=== PATIENT | female | born 1960 | race Caucasian/White ===

== ENCOUNTER 2018-01-17 01:46 | Emergency (ER) | payer OTHER ==
[~2018-01-17] VITALS: Ht 157.5 cm; Wt 69.0 kg
[~2018-01-17 01:46] MED LIST: ALPR1 PO; Budeprion Xl300 MG PO; DIPH50 PO; FAMO40 PO; LORA1 PO; METPRE4DP PO; OLAN2.5 PO; [UNRECOGNIZED DRUG - REMARK]
[2018-01-17] MEDS ORDERED: Ativan0.5 MG PO (04:13)
== END 2018-01-17 04:22 | disposition home or self-care (01) ==
LOC: ER 01:46
DX: F41.9 Anxiety disorder, unspecified (principal); F43.0 Acute stress reaction; G10 Huntington's disease; Z88.6 Allergy status to analgesic agent; Z88.7 Allergy status to serum and vaccine; Z79.899 Other long term (current) drug therapy; Z87.891 Personal history of nicotine dependence
CPT/HCPCS: 96372; 99282; J2060

== ENCOUNTER 2023-08-19 09:24 | Emergency (ER) | payer BC, OTHER ==
[~2023-08-19] VITALS: Ht 157.5 cm; Wt 65.8 kg
[~2023-08-19 09:24] MED LIST changes: +Ativan0.5 MG PO
[2023-08-19] MEDS ORDERED: QUETIAPINE FUMA5012 PO (10:03)
[2023-08-19] MEDS ORDERED: METPHE20CR PO (10:03)
[2023-08-19] MEDS ORDERED: BUPROPION HCL200 M1 PO (10:04)
[2023-08-19] MEDS ORDERED: ONDA4ODT MM ×2 (10:04→12:13)
[2023-08-19] MEDS ORDERED: ALPRAZOLAM110 (10:05)
[2023-08-19] MEDS ORDERED: Morphine Sulfate 4 MG/1 ML Injection IV ONE (10:15)
[2023-08-19] MEDS ORDERED: Ondansetron HCl 2 MG / ML 2ML Vial IV ONE (10:15)
[2023-08-19 10:24] LABS: BASOPHILS ABSOLUTE AUTO 0.04 K/mm3 (0.00-0.23); BASOPHILS PERCENT AUTO 0 % (0-2); EOSINOPHILS ABSOLUTE AUTO 0.17 K/mm3 (0.00-0.68); EOSINOPHILS PERCENT AUTO 2 % (0-6); Hemoglobin 13.9 g/dL (11.5-16.0); IMMATURE GRAN ABSOLUTE AUTO 0.05 K/mm3 (0.00-0.10); IMMATURE GRAN PERCENT AUTO 1 % (0-1); LYMPHOCYTES ABSOLUTE AUTO 1.27 K/mm3 (0.84-5.20); LYMPHOCYTES PERCENT AUTO 12 % (21-46); MONOCYTES ABSOLUTE AUTO 0.91 K/mm3 (0.16-1.47); MONOCYTES PERCENT AUTO 9 % (4-13); Mean Corpuscular HGB 29.5 pg (26.0-34.0); Mean Corpuscular HGB Conc 33.1 g/dL (31.5-36.5); Mean Corpuscular Volume 89 fL (80-100); NEUTROPHILS ABSOLUTE AUTO 8.31 K/mm3 (1.96-9.15); NEUTROPHILS PERCENT AUTO 77 % (41-73); Platelet Count 230 K/mm3 (150-400); RDW Coefficient Variation 13.7 % (11.7-14.2); RDW Standard Deviation 44.6 fL (35.1-46.3); Red Blood Cell Count 4.71 M/mm3 (3.80-5.20); White Blood Cell Count 10.75 K/mm3 (4.00-11.30)
[2023-08-19 10:30] LABS: Source, Urine Voided
[2023-08-19 10:35] LABS: Appearance, Urine Clear (Clear); Bilirubin, Urine Neg (Neg); Blood, Urine 1+ (Neg); Color, Urine Yellow (P-Yellow); Glucose Qualitative, Urine Neg (Neg); Ketones, Urine Neg (Neg); Leukocyte Esterase, Urine 2+ (Neg); Nitrite, Urine Neg (Neg); Protein, Urine Neg (Neg); Specific Gravity, Urine 1.005 (1.003-1.022); Urobilinogen, Urine NORM (Normal); pH, Urine 6.5 (5.0-8.0)
[2023-08-19 10:39] LABS: Albumin, Blood 3.9 g/dL (3.4-5.0); Bilirubin, Total 0.5 mg/dL (0.1-1.0); Bun/Creatinine Ratio 19.5 (12.0-20.0); Calcium, Blood 9.3 mg/dL (8.5-10.1); Creatinine, Blood 0.77 mg/dL (0.40-1.00); Globulin, Blood 3.9 g/dL (2.2-4.0); Potassium, Blood 4.1 mmol/L (3.5-5.5); Total Protein, Blood 7.8 g/dL (6.4-8.2)
[2023-08-19 10:41] LABS: Bacteria Few /hpf; Squamous Epithelial Cells Few /hpf (Few)
[2023-08-19] MEDS ORDERED: Colace100 MG PO (12:13)
[2023-08-19] MEDS ORDERED: Norco 5-325 Ta1 EACH PO (12:13)
[2023-08-19 12:48] VITALS: BP 150/84
[2023-08-19] MEDS ORDERED: HYDROCODONE-AC1 EA10 PO (12:48)
== END 2023-08-19 12:53 | disposition home or self-care (01) ==
LOC: ER 09:24
PROVIDERS: Emergency Medicine
DX: R10.9 Unspecified abdominal pain (principal); Z88.6 Allergy status to analgesic agent; Z88.7 Allergy status to serum and vaccine; Z79.899 Other long term (current) drug therapy; Z87.891 Personal history of nicotine dependence
CPT/HCPCS: 71045; 74177; 80053; 81001; 83690; 84484; 85025; 87077; 87086; 87186; 93005; 93010; 96374-59; 96375; 99284-25; J2270; J2405; Q9967